=== PATIENT | female | born 1960 | race Caucasian/White ===

== ENCOUNTER 2017-06-18 10:34 | Emergency (ER) | payer OTHER ==
[2017-06-18 11:01] VITALS: BMI 14.3
[2017-06-18 11:23] VITALS: PULSE 77; TEMP 97.8
--- NOTE | 2017-06-18 12:14 | C.PDOC ---
History Of Present Illness Marleen Price is a 56 year old female, with no past medical history, who presents to the emergency department complaining of flu-like symptoms, headache , facial and ear pressure, nasal congestion and generalized body aches with fever and chills onset for 4 days. There is no documented fever but patient feels hot and cold. She denies any abdominal pain or other medical complaints. PMD: None provided. Time Seen by Provider: 06/18/17 11:16 Chief Complaint (Nursing): Flu-like Symptoms History Per: Patient History/Exam Limitations: no limitations Onset/Duration Of Symptoms: Days (x4) Current Symptoms Are (Timing): Still Present Location Of Pain: Headache Associated Symptoms: Fever, Chills, Nasal Congestion, Other (facial and ear pressure) Past Medical History Reviewed: Historical Data, Nursing Documentation, Vital Signs Vital Signs: Last Vital Signs Temp 97.8 F 06/18/17 11:23 Pulse 77 06/18/17 11:23 Resp 20 06/18/17 11:23 BP 127/81 06/18/17 11:23 Pulse Ox 98 06/18/17 12:27 - Medical History PMH: No Chronic Diseases Surgical History: No Surg Hx Family History: States: Unknown Family Hx - Social History Hx Alcohol Use: No Hx Substance Use: No - Immunization History Hx Tetanus Toxoid Vaccination: No Hx Influenza Vaccination: No Hx Pneumococcal Vaccination: No Review Of Systems Except As Marked, All Systems Reviewed And Found Negative. Constitutional: Positive for: Fever, Chills, Other (generalized body aches) ENT: Positive for: Nose Congestion, Other (facial and ear pressure) Gastrointestinal: Negative for: Abdominal Pain Neurological: Positive for: Headache Physical Exam - Physical Exam Appears: Other (appears ill, flushed) Skin: Normal Color, Warm, Dry Head: Atraumatic Eye(s): bilateral: Other (watery) Ear(s): Bilateral: Normal Nose: Other (boggy) Throat: Erythema (posterior pharynx) Neck: Normal ROM, Supple Cardiovascular: Rhythm Regular, No Murmur Respiratory: Normal Breath Sounds, No Accessory Muscle Use, No Wheezing Gastrointestinal/Abdominal: Normal Exam, Soft, No Tenderness Extremity: Normal ROM, No Deformity, No Swelling Neurological/Psych: Oriented x3 ED Course And Treatment O2 Sat by Pulse Oximetry: 98 (RA) Pulse Ox Interpretation: Normal Medical Decision Making Medical Decision Making: Initial Impression: Flu-like symptoms Initial Plan: --Tylenol 975 mg PO --Motrin tab 600 mg PO --reevaluation Disposition Counseled Patient/Family Regarding: Diagnosis, Need For Followup, Rx Given - Disposition Referrals: [facility] [Outside] Disposition: HOME/ ROUTINE Disposition Time: 12:49 Condition: STABLE Prescriptions: Ibuprofen [Motrin] 600 mg PO TID #15 tab Oseltamivir [Tamiflu] 1 cap PO BID #10 cap Oxymetazoline 0.05% [Oxymetazoline HCl 30 Ml] 1 ml NS BID #1 bottle Instructions: Influenza (ED) Forms: [employer] (Lao), Work Excuse, Gen Discharge Inst Lao - POA Present On Arrival: None - Clinical Impression Clinical Impression: Influenza-like illness - Scribe Statement Reid Feliciano Provider Attestation: All medical record entries made by the Scribe were at my direction and personally dictated by me. I have reviewed the chart and agree that the record accurately reflects my personal performance of the history, physical exam, medical decision making, and the department course for this patient. I have also personally directed, reviewed, and agree with the discharge instructions and disposition.
[2017-06-18 12:57] VITALS: BP 129/76; RESP 16; O2SAT 65
== END 2017-06-18 12:56 | disposition home or self-care (01) ==
LOC: C.ER 10:34
DX: J11.1 Influenza due to unidentified influenza virus with other respiratory manifestations (principal)

== ENCOUNTER 2017-07-15 09:49 | Emergency (ER) | payer OTHER ==
[2017-07-15 09:49] VITALS: BMI 14.3
[2017-07-15 10:16] VITALS: BP 128/80; PULSE 70; RESP 18; TEMP 98.4; O2SAT 97
--- NOTE | 2017-07-15 10:54 | C.PDOC ---
History Of Present Illness 56 y/o female presents to ED with complaints of neck pain and headache worsening for 2 months. Patient denies injury, numbness, weakness, neck stiffness or any other complaints at this time. Chief Complaint (Nursing): Headache History Per: Patient History/Exam Limitations: no limitations Onset/Duration Of Symptoms: Days Current Symptoms Are (Timing): Still Present Quality: "Pain" Past Medical History Reviewed: Historical Data, Nursing Documentation, Vital Signs Vital Signs: Last Vital Signs Temp 98.4 F 07/15/17 10:15 Pulse 70 07/15/17 10:15 Resp 18 07/15/17 10:15 BP 128/80 07/15/17 10:15 Pulse Ox 97 07/15/17 10:54 - Medical History PMH: No Chronic Diseases Surgical History: No Surg Hx Family History: States: No Known Family Hx - Social History Hx Alcohol Use: No Hx Substance Use: No - Immunization History Hx Tetanus Toxoid Vaccination: No Hx Influenza Vaccination: No Hx Pneumococcal Vaccination: No Review Of Systems Constitutional: Negative for: Fever, Chills Gastrointestinal: Negative for: Nausea, Vomiting Musculoskeletal: Positive for: Neck Pain Skin: Negative for: Rash Neurological: Positive for: Headache. Negative for: Weakness, Numbness Physical Exam - Physical Exam Appears: Non-toxic, No Acute Distress Skin: Warm, Dry, No Rash Head: Atraumatic, Normacephalic Oral Mucosa: Moist Neck: Supple, Other (Eladio tenderness on palpation to trapezius muscle and exertion to scalp) Chest: Symmetrical Cardiovascular: Rhythm Regular Respiratory: Normal Breath Sounds, No Rales, No Rhonchi, No Wheezing Gastrointestinal/Abdominal: Soft, No Tenderness, No Guarding, No Rebound Neurological/Psych: Oriented x3 ED Course And Treatment O2 Sat by Pulse Oximetry: 97 (RA) Pulse Ox Interpretation: Normal Medical Decision Making Medical Decision Making: Impression: Muscle tension, Headache, Muscle spasm Plan: Patient given anti inflammatory medication and Muscle relaxant Disposition - Disposition Referrals: [facility] [Outside] Disposition: HOME/ ROUTINE Disposition Time: 10:51 Condition: GOOD Prescriptions: Cyclobenzaprine [Cyclobenzaprine HCl] 10 mg PO TID #15 tab Naproxen [Naprosyn] 500 mg PO BID #20 tablet Instructions: Tension Headache (ED), Muscle Spasm (ED) Forms: [employer] (Kazakh), Gen Discharge Inst Algerian Print Language: CHILEAN - Clinical Impression Clinical Impression: Headache, Muscle tension headache - Scribe Statement The provider has reviewed the documentation as recorded by the Svetlanaibyunier Eli All medical record entries made by the Svetlanaibyunier were at my direction and personally dictated by me. I have reviewed the chart and agree that the record accurately reflects my personal performance of the history, physical exam, medical decision making, and the department course for this patient. I have also personally directed, reviewed, and agree with the discharge instructions and disposition.
== END 2017-07-15 11:12 | disposition home or self-care (01) ==
LOC: C.ER 09:49
DX: G44.209 Tension-type headache, unspecified, not intractable (principal)

== ENCOUNTER 2017-08-05 09:50 | Emergency (ER) | payer OTHER, SELFPAY ==
[2017-08-05 10:11] VITALS: BMI 24.2
[2017-08-05 10:13] VITALS: TEMP 98.1
[2017-08-05] MEDS ORDERED: Acetaminophen-Codeine 300/30 mg Tab PO STA (10:47)
[2017-08-05] MEDS ORDERED: Acetaminophen-Codeine 300/30 mg Tab PO ONE (11:05)
--- NOTE | 2017-08-05 12:19 | C.PDOC ---
History Of Present Illness 56 year old female presents to the ED for evaluation of neck pain and right shoulder pain which began 6 weeks ago. Patient was evaluated in the ED 3 weeks ago and was prescribed Motrin and Flexeril. Patient had not found improvement and presents for further evaluation. Patient has not followed up with clinic. She denies headache, dizziness, chest pain, shortness of breath, or recent falls /injuries. Time Seen by Provider: 08/05/17 10:25 Chief Complaint (Nursing): Upper Extremity Problem/Injury History Per: Patient History/Exam Limitations: no limitations Onset/Duration Of Symptoms: Other (6 weeks ) Current Symptoms Are (Timing): Still Present Quality: "Pain" Additional History Per: Patient Past Medical History Reviewed: Historical Data, Nursing Documentation, Vital Signs Vital Signs: Last Vital Signs Temp 98.1 F 08/05/17 12:40 Pulse 66 08/05/17 12:40 Resp 18 08/05/17 12:40 BP 131/84 08/05/17 12:40 Pulse Ox 97 08/05/17 12:40 - Medical History PMH: No Chronic Diseases Surgical History: No Surg Hx Family History: States: Unknown Family Hx - Social History Hx Alcohol Use: No Hx Substance Use: No - Immunization History Hx Tetanus Toxoid Vaccination: Yes Hx Influenza Vaccination: Yes Hx Pneumococcal Vaccination: Yes Review Of Systems Cardiovascular: Negative for: Chest Pain Respiratory: Negative for: Shortness of Breath Musculoskeletal: Positive for: Neck Pain, Shoulder Pain (right) Neurological: Negative for: Headache, Dizziness Physical Exam - Physical Exam Appears: Non-toxic, No Acute Distress Skin: Normal Color, Warm, Dry Head: Atraumatic, Normacephalic Eye(s): bilateral: Normal Inspection Oral Mucosa: Moist Neck: Paracervical Tenderness (right), Supple Chest: Symmetrical, No Deformity, No Tenderness Cardiovascular: Rhythm Regular, No Murmur Respiratory: Normal Breath Sounds, No Rales, No Rhonchi, No Wheezing Back: Other (right trapezius and right deltoid tenderness ) Extremity: Normal ROM, Capillary Refill (less than 2 seconds ) Neurological/Psych: Oriented x3, Normal Speech, Normal Cognition, Normal Sensation Gait: Steady ED Course And Treatment O2 Sat by Pulse Oximetry: 96 Medical Decision Making Medical Decision Making: Assessment: cervical radiculopathy Progress: Cervical Spine XR ordered and reviewed. Motrin PO and Tylenol/Codeine PO administered. Disposition Counseled Patient/Family Regarding: Studies Performed, Diagnosis, Need For Followup, Rx Given - Disposition Referrals: [facility] [Outside] [facility] [Outside] Disposition: HOME/ ROUTINE Disposition Time: 12:17 Condition: STABLE Additional Instructions: follow up with your doctor in 2 days call to make an appointment take medications as prescribed return to ER if symptoms worsens or progress Prescriptions: Acetaminophen/Codeine [Tylenol/Codeine 300 MG/30 MG] 1 tab PO Q6H PRN #12 tab PRN Reason: Pain, Severe (8-10) Naproxen [Naprosyn] 500 mg PO BID PRN #16 tab PRN Reason: Pain, Moderate (4-7) Instructions: Radiculopathy (DC) Forms: Gen Discharge Inst Hungarian, [employer] (Hungarian) Print Language: SAMI - Clinical Impression Clinical Impression: Cervical radiculopathy - Scribe Statement The provider has reviewed the documentation as recorded by the Scribe (Tamia Garcias) Provider Attestation: All medical record entries made by the Scribe were at my direction and personally dictated by me. I have reviewed the chart and agree that the record accurately reflects my personal performance of the history, physical exam, medical decision making, and the department course for this patient. I have also personally directed, reviewed, and agree with the discharge instructions and disposition.
[2017-08-05 12:43] VITALS: BP 131/84; PULSE 66; RESP 18
[2017-08-05 12:57] VITALS: O2SAT 96
--- NOTE | 2017-08-05 14:23 | RAD ---
PROCEDURE: Cervical Spine Radiographs. HISTORY: Pain. COMPARISON: None available FINDINGS: BONES: Limited visualization of C1-C2 superiorly and C7 inferiorly on lateral view. Straightening of the normal cervical lordosis may be related to muscle spasm or positioning. No acute displaced fracture identified dens tip partially obscured. DISC SPACES: Unremarkable. SOFT TISSUES: Unremarkable. No prevertebral soft tissue swelling. OTHER FINDINGS: None. IMPRESSION: Limited visualization of C1-C2 superiorly and C7 inferiorly on lateral view. Straightening of the normal cervical lordosis may be related to muscle spasm or positioning.
== END 2017-08-05 12:40 | disposition home or self-care (01) ==
LOC: C.ER 09:50
DX: M54.12 Radiculopathy, cervical region (principal)

== ENCOUNTER 2018-06-14 12:05 | Emergency (ER) | payer SELFPAY ==
[2018-06-14 12:05] VITALS: BMI 24.2
--- NOTE | 2018-06-14 14:37 | C.PDOC ---
History Of Present Illness Patient c/o left sided headache, dizziness, weakness, nausea, epigastric discomfort x 3-4 days. Patient sts pain is similar to her recurrent headaches. Patient sts OTC pain meds are not helping. Time Seen by Provider: 06/14/18 12:38 Chief Complaint (Nursing): Abdominal Pain History Per: Patient History/Exam Limitations: no limitations Past Medical History Reviewed: Historical Data, Nursing Documentation, Vital Signs Vital Signs: Last Vital Signs Temp 98.0 F 06/14/18 12:19 Pulse 112 H 06/14/18 13:51 Resp 20 06/14/18 12:19 BP 86/56 L 06/14/18 13:51 Pulse Ox 100 06/14/18 13:51 Family History: States: Unknown Family Hx - Social History Hx Alcohol Use: No Hx Substance Use: No - Immunization History Hx Tetanus Toxoid Vaccination: No Hx Influenza Vaccination: Yes Hx Pneumococcal Vaccination: No Review Of Systems Except As Marked, All Systems Reviewed And Found Negative. Constitutional: Positive for: Weakness. Negative for: Fever, Chills Gastrointestinal: Positive for: Nausea, Abdominal Pain (mild epigastric dyscomfort ). Negative for: Vomiting, Diarrhea Neurological: Positive for: Headache, Dizziness Physical Exam - Physical Exam Appears: Well, Non-toxic, No Acute Distress Skin: Normal Color, Warm, Dry Head: Atraumatic, Normacephalic Eye(s): bilateral: Normal Inspection Oral Mucosa: Moist Neck: Normal ROM Chest: Symmetrical Cardiovascular: Rhythm Regular, No Murmur Respiratory: Normal Breath Sounds, No Rales, No Rhonchi, No Wheezing Gastrointestinal/Abdominal: Normal Exam, Soft, No Tenderness Extremity: Bilateral: Atraumatic, Normal Color And Temperature, Normal ROM Neurological/Psych: Oriented x3, Normal Speech, Normal Cognition ED Course And Treatment - Laboratory Results Result Diagrams: 06/14/18 14:51 06/14/18 14:51 ECG Rhythm: Sinus Rhythm ECG Interpretation: No Acute Changes Rate From EC O2 Sat by Pulse Oximetry: 100 (RA) Pulse Ox Interpretation: Normal Progress Note: Labs reviewed, no acute changes, IVF, Reglan Iv with partial imp rovement. Morphine 2 mg IV with improvement. Patient is stable to be d/c. Medical Decision Making Medical Decision Making: Plan: -Glucose POC -Reglan Disposition - Disposition Referrals: [facility] [Outside] Disposition: HOME/ ROUTINE Disposition Time: 17:59 Condition: IMPROVED Additional Instructions: Follow up with PMD within 1-2 days. Return to ED if feel worse. Prescriptions: Acetaminophen/Butalbital/Caf [Fioricet] 1 tab PO TID PRN #20 tab PRN Reason: Headache Instructions: Headache, Adult, Migraine Headache (DC) Forms: [employer] (Occitan) Print Language: SWEDISH - Clinical Impression Clinical Impression: Headache - PA / MOTO MIX OPERATOR / Resident Statement MD/DO has reviewed & agrees with the documentation as recorded. - Scribe Statement The provider has reviewed the documentation as recorded by the Scribe (Claudia Voss) All medical record entries made by the Scribe were at my direction and personally dictated by me. I have reviewed the chart and agree that the record accurately reflects my personal performance of the history, physical exam, medical decision making, and the department course for this patient. I have also personally directed, reviewed, and agree with the discharge instructions and disposition.
[2018-06-14 14:55] LABS: BASO % 0.4 % (0.0-2.0); EOS # 0.1 K/uL (0.0-0.7); EOS % 1.3 % (0.0-4.0); HEMOGLOBIN 14.2 g/dL (11.0-16.0); LYMPH # 3.1 K/uL (1.0-4.3); LYMPH % 39.9 % (20.0-40.0); MEAN CELL VOLUME 93.1 fL (81.0-99.0); MEAN CORPUSCULAR HGB CONC 33.2 g/dL (33.0-37.0); MEAN PLATELET VOLUME 6.8 fL (7.2-11.7); MONO # 0.4 K/uL (0.0-0.8); NEUT # 4.1 K/uL (1.8-7.0); NEUT % 53.4 % (50.0-75.0); RBC 4.6 Mil/uL (3.80-5.20); RED CELL DISTRIBUTION WIDTH 13.1 % (11.5-14.5); WHITE BLOOD COUNT 7.8 K/uL (4.8-10.8)
[2018-06-14 15:09] LABS: ALB/GLOB RATIO 1.4 (1.0-2.1); ALBUMIN 4.7 g/dL (3.5-5.0); ALT/SGPT 20 U/L (9-52); AMYLASE 105 U/L (30-110); AST/SGOT 22 U/L (14-36); BLOOD UREA NITROGEN 11 mg/dL (7-17); CALCIUM 9.7 mg/dl (8.6-10.4); GFR NON-AFRICAN AMERICAN > 60; LIPASE 100 U/L (23-300)
--- NOTE | 2018-06-14 15:09 | CT ---
Date of service: 06/14/2018 PROCEDURE: CT HEAD WITHOUT CONTRAST. HISTORY: headache, dizzy COMPARISON: None available. TECHNIQUE: Axial computed tomography images were obtained through the head/brain without intravenous contrast. Radiation dose: Total exam DLP = 1044.4 mGy-cm. This CT exam was performed using one or more of the following dose reduction techniques: Automated exposure control, adjustment of the mA and/or kV according to patient size, and/or use of iterative reconstruction technique. FINDINGS: HEMORRHAGE: No intracranial hemorrhage. BRAIN: No mass effect or edema. No atrophy or chronic microvascular ischemic changes. VENTRICLES: No hydrocephalus. CALVARIUM: Unremarkable. PARANASAL SINUSES: Unremarkable as visualized. No significant inflammatory changes. MASTOID AIR CELLS: Unremarkable as visualized. No inflammatory changes. OTHER FINDINGS: None. IMPRESSION: No acute intracranial pathology identified.
[2018-06-14 15:21] LABS: CK-MB 0.92 ng/mL (0.0-3.38)
[2018-06-14 15:51] LABS: URINE BILIRUBIN NEGATIVE (NEGATIVE); URINE BLOOD 1+ (NEGATIVE); URINE CLARITY Clear (Clear); URINE COLOR Straw (YELLOW); URINE GLUCOSE (UA) NORMAL (Normal); URINE LEUKOCYTE ESTERASE NEG Leu/uL (Negative); URINE PROTEIN NEGATIVE (NEGATIVE); URINE UROBILINOGEN NORMAL mg/dL (0.2-1.0)
[2018-06-14 16:31] VITALS: PULSE 64; RESP 18
[2018-06-14 18:50] VITALS: BP 135/84; TEMP 98.1
[2018-06-14 19:12] VITALS: O2SAT 100
--- NOTE | 2018-06-16 21:45 | CARD ---
APPROVED REPORT Date of service: 06/14/2018 EKG Measurement Heart [id number] <Conclusion> Normal sinus rhythm Cannot rule out Anterior infarct, age undetermined Abnormal ECG
== END 2018-06-14 18:00 | disposition home or self-care (01) ==
LOC: C.ER 12:05
DX: R51 Headache (principal)
CPT/HCPCS: 70450; 80053; 81001; 82150; 82550; 82553; 82948; 83690; 84484; 85025; 93005; 96365; 96375; 99285; J2270; J2765

== ENCOUNTER 2018-08-22 13:54 | Emergency (ER) | payer SELFPAY ==
[2018-08-22 13:56] VITALS: BMI 24.2
[2018-08-22 14:24] VITALS: BP 116/71; PULSE 86; RESP 20; TEMP 98.6; O2SAT 98
--- NOTE | 2018-08-22 14:54 | C.PDOC ---
History Of Present Illness Patient is a 57 year old female who presents to the ED for evaluation of left nipple and breast pain for the past week. Patient is also c/o electric left hip pain radiating down leg. She denies any nipple discharge, CP, SOB, cough, injury, fever, abdominal pain, dysuria, nausea, vomiting, or diarrhea. Time Seen by Provider: 08/22/18 14:23 Chief Complaint (Nursing): Breast Problem History Per: Patient History/Exam Limitations: no limitations Onset/Duration Of Symptoms: Days (one week ) Current Symptoms Are (Timing): Still Present Recent travel outside of the [place]: No Additional History Per: Patient Past Medical History Reviewed: Historical Data, Nursing Documentation, Vital Signs Vital Signs: Last Vital Signs Temp 98.6 F 08/22/18 14:08 Pulse 86 08/22/18 14:08 Resp 20 08/22/18 14:08 BP 116/71 08/22/18 14:08 Pulse Ox 98 08/22/18 14:08 - Medical History PMH: No Chronic Diseases, Migraine Surgical History: No Surg Hx Family History: States: Unknown Family Hx - Social History Hx Alcohol Use: No Hx Substance Use: No - Immunization History Hx Tetanus Toxoid Vaccination: No Hx Influenza Vaccination: Yes (2018) Hx Pneumococcal Vaccination: No Review Of Systems Constitutional: Negative for: Fever Cardiovascular: Positive for: Other (nipple and breat pain. no nipple discharge ). Negative for: Chest Pain Respiratory: Negative for: Cough, Shortness of Breath Gastrointestinal: Negative for: Nausea, Vomiting, Abdominal Pain, Diarrhea Genitourinary: Negative for: Dysuria Musculoskeletal: Positive for: Leg Pain (left hip pain radiating down leg ) Physical Exam - Physical Exam Appears: Non-toxic, Other (mild pain ) Skin: Normal Color, Warm, Dry Head: Atraumatic, Normacephalic Chest: Symmetrical, Other (left breast mild swelling and erythematous, no discharge, no masses ) Cardiovascular: Rhythm Regular, No Murmur Respiratory: Normal Breath Sounds, No Rales, No Rhonchi, No Wheezing Gastrointestinal/Abdominal: Soft, No Tenderness Extremity: Tenderness (mild left hip tenderness ) Neurological/Psych: Oriented x3, Normal Speech, Normal Cognition Gait: Steady ED Course And Treatment O2 Sat by Pulse Oximetry: 98 (on RA) Pulse Ox Interpretation: Normal Progress Note: Plan: Keflex 500mg PO. Flexeril 10mg PO. Anaprox 550mg PO. Dx cellulitis skin infection Disposition Counseled Patient/Family Regarding: Diagnosis, Need For Followup, Rx Given - Disposition Referrals: [facility] [Outside] Disposition: HOME/ ROUTINE Disposition Time: 15:45 Condition: STABLE Additional Instructions: FOLLOW UP WITH YOUR DOCTOR OR CLINIC IN 1-2 DAYS USE MEDICATIONS DIRECTED RETURN TO EMERGENCY ROOM IF YOUR SYMPTOMS BECOME WORSE SEGUIRSE CON ENAMORADO MDICO O CLNICA EN 1-2 GRACE UTILICE MEDICAMENTOS YRN SE DIRIGE VUELVA A LA SHONNA DE EMERGENCIA SI APRIL SNTOMAS SE HACEN PEOR Prescriptions: Cephalexin [Keflex] 500 mg PO BID #14 capsule Cyclobenzaprine [Flexeril] 10 mg PO BID PRN #15 tab PRN Reason: Muscle Spasm Naproxen 375 mg PO BID PRN #20 tablet PRN Reason: pain Instructions: Sciatica (DC), Cellulitis (ED) Forms: [employer] (Romansh) Print Language: UZBEK - Clinical Impression Clinical Impression: Cellulitis of breast, Left sided sciatica - Scribe Statement The provider has reviewed the documentation as recorded by the Elli Garcia All medical record entries made by the Svetlanaibyunier were at my direction and personally dictated by me. I have reviewed the chart and agree that the record accurately reflects my personal performance of the history, physical exam, medical decision making, and the department course for this patient. I have also personally directed, reviewed, and agree with the discharge instructions and disposition.
[2018-08-22] MEDS ORDERED: Naproxen 550 mg Tab PO STA (15:11)
[2018-08-22] MEDS ORDERED: Naproxen 550 mg Tab PO ONE (15:21)
== END 2018-08-22 15:58 | disposition home or self-care (01) ==
LOC: C.ER 13:54
DX: N61.0 Mastitis without abscess (principal); M54.32 Sciatica, left side